=== PATIENT | male | born 1935 | race Caucasian/White ===

== ENCOUNTER → 2018-12-05 | Outpatient (REF) | payer MEDICARE, OTHER | LOC: M LAB REF 15:45 | PROVIDERS: ATTEND Physician Assistant | DX: J02.9 Acute pharyngitis, unspecified (principal) ==

== ENCOUNTER 2019-03-30 14:06 | Inpatient (IN) | payer MEDICARE, OTHER ==
[~2019-03-30] VITALS: Ht 180.3 cm; Wt 107.0 kg
[2019-03-30] MEDS ORDERED: ONDANSETRON 4MG/2ML VIAL (J2405) IV ONE (14:30)
[2019-03-30] MEDS ORDERED: MORPHINE 4 MG/ML 1ML VIAL/SYRINGE (J2270) IV ONE (14:30)
[2019-03-30] MEDS: NS 1,000 ML IV SCH ×2 (15:01→22:12)
[2019-03-30 15:43] LABS: BASO # 0.1 10^3/uL (0.0-0.2); BASO % 0.4 % (0.0-1.0); HEMOGLOBIN 12.4 g/dl (13.5-17.5); LYMPH # 0.6 10^3/uL (1.5-5.0); LYMPH % 3.5 % (24.0-44.0); MEAN CORPUSCULAR HEMOGLOBIN 38.3 pg (27.0-33.0); MEAN CORPUSCULAR HGB CONC 34.4 g/dl (32.0-36.5); MEAN CORPUSCULAR VOLUME 111.1 fl (80.0-96.0); MONO % 6.2 % (0.0-5.0); NEUTROPHILS # 13.6 10^3/uL (1.5-8.5); NEUTROPHILS % 87.8 % (36.0-66.0); PLATELET COUNT, AUTOMATED 168 10^3/uL (150-450); RED BLOOD COUNT 3.24 10^6/uL (4.30-6.10); WHITE BLOOD COUNT 15.5 10^3/uL (4.0-10.0)
[2019-03-30 15:55] LABS: INR 1.55; PROTHROMBIN TIME 18.3 SECONDS (11.8-14.0)
[2019-03-30 15:56] LABS: PARTIAL THROMBOPLASTIN TIME 42.9 SECONDS (25.0-38.4)
--- NOTE | 2019-03-30 15:57 | REP ---
Lumbar spine series: Four views. History: Trauma. Findings: Four views of the lumbar spine are presented. There are spinous process fusion clamp seen in place at the L4-5 and L3-4 interspinous level. Lumbar vertebral body heights are preserved. No fracture or collapse is seen. Discogenic spurring is noted in the mid lumbar spine. The oblique images are not well penetrated. Impression: No traumatic abnormality noted. Status post interspinous fusion at the L3-4 and L4-5. Degenerative disc disease. Electronically Signed by Moises Lowery MD 03/30/2019 06:38 P
--- NOTE | 2019-03-30 15:59 | REP ---
AP PELVIS, LEFT HIP: REASON: Trauma. AP pelvis shows moderate bilateral asymmetric hip joint space narrowing with buttressing. There is no evidence of an acute fracture. Postoperative changes seen involving the imaged lumbar spine. AP and frog lateral views of the left hip show degenerative changes as mentioned in the AP pelvis. There is no acute fracture or dislocation. OVERALL IMPRESSION: Chronic changes. Electronically Signed by Simon Chu DO 03/30/2019 04:05 P
[2019-03-30 16:12] LABS: BLOOD UREA NITROGEN 22 MG/DL (7-18); CALCIUM LEVEL 8.5 MG/DL (8.8-10.2); CARBON DIOXIDE LEVEL 30 MEQ/L (21-32); CHLORIDE LEVEL 105 MEQ/L (98-107); CK-MB VALUE MASS 1.9 NG/ML (<3.6); CPK CREATINE PHOSPHOKINASE 503 U/L (39-308); CREATININE FOR GFR 0.91 MG/DL (0.70-1.30); GLOMERULAR FILTRATION RATE > 60.0 (>35); GLUCOSE, FASTING 104 MG/DL (70-100); MB/CK RELATIVE INDEX 0.38 (< OR =4); SODIUM LEVEL 142 MEQ/L (136-145); TROPONIN I 0.13 NG/ML (< 0.10)
--- NOTE | 2019-03-30 16:21 | REP ---
REASON: Preoperative evaluation. The latest prior for comparison is 02/16/2018. The technique utilized in obtaining the radiograph has magnified the cardiac silhouette and accentuated the interstitial markings. There is cardiomegaly accentuated by technique. There is a subtle opacity in the left upper lobe difficult to evaluate on this portable exam. There appears to be a nodule in the right mid lung zone, again difficulty to evaluate on this portable exam. This nodule measures approximately 1.4 cm. There is evidence of calcific pleural plaquing and seen in the left lower lung field more than the right. The osseous structures are essentially unchanged. IMPRESSION: Lung field abnormalities as described above. CT examination of the chest is recommended. Electronically Signed by Simon Chu DO 03/30/2019 04:32 P
--- NOTE | 2019-03-30 16:59 | REP ---
CT left hip without contrast: History: Trauma. CT findings: There is a fairly prominent pattern of tendon insertion site spurring on the greater trochanter, lesser trochanter, and ischium. There is no evidence of proximal femur or left antionette pelvis fracture. Femoral head is smooth and rounded. Mild acetabular and femoral osteoarthritic spurring is noted. The periarticular soft tissues are remarkable only for some vascular calcification. Incidentally, the urinary bladder appears to be distended. Impression: No hip fracture. Mild hip joint osteoarthritis. Tendon insertion site spurring on the greater trochanter, lesser trochanter, and ischium. Distended urinary bladder noted incidentally. Electronically Signed by Moises Lowery MD 03/30/2019 06:41 P
[2019-03-30] MEDS ORDERED: ISOVUE-370 76% 100ML VIAL (Q9967) As Ordered ONE (17:02)
--- NOTE | 2019-03-30 17:17 | REP ---
CT lumbar spine: 03/30/2019. Indication: Lumbar spine trauma. Technique: Axial images of the lumbar spine were obtained with sagittal and coronal reconstruction provided. Comparison: None. Findings: There is no acute fracture, subluxation or dislocation of the lumbar spine. Postoperative sequelae are noted with the interspinous process spacing hardware appearing intact. There is minimal retrolisthesis of L3 and L4. Multilevel degenerative sequelae are present. No definite disc herniation is detected. There is no evidence of hemorrhage within the spinal canal or paraspinal soft tissues. Extensive aortoiliac atherosclerotic disease is present. Impression: No acute pathology of the osseous lumbar spine. No fracture. Electronically Signed by Naseem Bal DO 03/30/2019 05:19 P
[2019-03-30] MEDS ORDERED: XARE20TA PO (17:27)
[2019-03-30] MEDS ORDERED: BISO5TAB9 PO (17:27)
[2019-03-30] MEDS ORDERED: METH4TAB28 PO (17:27)
[2019-03-30] MEDS ORDERED: PRES10CA2 PO (17:27)
[2019-03-30] MEDS ORDERED: FOLI1TAB11 PO (17:27)
[2019-03-30] MEDS ORDERED: OMEP-218 PO (17:27)
[2019-03-30] MEDS ORDERED: ACET-907 PO (17:27)
[2019-03-30] MEDS ORDERED: AMLO5TAB6 PO (17:27)
[2019-03-30] MEDS ORDERED: METH2.5T48 PO (17:27)
[2019-03-30] MEDS ORDERED: REST0.05 OD (17:30)
--- NOTE | 2019-03-30 17:56 | REPVR ---
PROCEDURE INFORMATION: Exam: CT Abdomen And Pelvis With Contrast Exam date and time: 03/30/2019 5:17 PM Clinical history: 83 years old, male; Injury or trauma; Fall; Initial encounter; Blunt; Generalized TECHNIQUE: Imaging protocol: Computed tomography of the abdomen and pelvis with intravenous contrast. Radiation optimization: All CT scans at this facility use at least one of these dose optimization techniques: automated exposure control; mA and/or kV adjustment per patient size (includes targeted exams where dose is matched to clinical indication); or iterative reconstruction. Contrast material: ISOVUE 370; Contrast volume: 100 ml; Contrast route: IV; COMPARISON: CR Hip,AP,LAT to include Pelvis LEFT 03/30/2019 2:38 PM FINDINGS: Lungs: No suspicious mass or airspace process in the visualized lung bases. Pleural space: Calcified pleural plaques are present at the lung bases. Heart: Multi-chamber cardiac dilatation is noted. No evidence of acute pulmonary edema. Liver: Liver appears normal with no focal abnormality. Gallbladder and bile ducts: Gallbladder is present and shows no evidence of gallstone. Pancreas: Pancreas appears normal. No focal mass or peripancreatic inflammation. Spleen: Spleen appears homogeneous without focal mass. Adrenals: Adrenal glands are normal in appearance. Kidneys and ureters: Kidneys appear normal, with no stone, solid mass or hydronephrosis. Stomach and bowel: No evidence of small bowel obstruction. Diverticular changes are present within the colon without inflammation. Appendix: Appendix is not visualized. Cecal tip suture line is present suggesting prior appendix resection. Intraperitoneal space: demonstrate bilateral simple fluid density cysts measuring up to 4.2 cm. All the lesions demonstrate simple fluid density and are therefore benign cysts which require no follow up. No pneumoperitoneum. No abnormal pelvic mass. Vasculature: Atherosclerotic change present in the aorta, without aneurysm. Lymph nodes: No enlarged lymph nodes. No abnormal pelvic sidewall lymph nodes. Bladder: Urinary bladder appears normal. Reproductive: Unremarkable as visualized. Bones/joints: Postsurgical and degenerative changes are incidentally seen in the lumbar spine, unchanged No acute lumbar spine fracture. No acute pelvic fracture or malalignment. Soft tissues: Fat containing umbilical hernia is present. No intra-abdominal hematoma. No pelvic hematoma. IMPRESSION: 1. No CT evidence of acute abdominal or pelvic trauma 2. Colonic diverticular changes without active inflammation. 3. Incidental findings as described above, which require no specific followup Electronically signed by: Maycol Dennis On 03/30/2019 17:56:42 PM
[2019-03-30] MEDS ORDERED: KETOROLAC 30 MG/ML VIAL (J1885) IV ONE (19:00)
[2019-03-30 21:27] VITALS: BP 187/77
[2019-03-30] MEDS: BISOPROLOL FUMARATE 5 MG TAB PO SCH (22:11)
[2019-03-30] MEDS: RIVAROXABAN 20 MG TAB (XARELTO) PO SCH (22:11)
[2019-03-30] MEDS: amLODIPine 5 MG TAB PO SCH (22:11)
[2019-03-30] MEDS: FOLIC ACID 1 MG TAB PO SCH (22:12)
[2019-03-30] MEDS: methylPREDNISolone 4 MG TAB PO SCH (23:30)
--- NOTE | 2019-03-31 02:11 | HPEPDOC ---
General Date of Admission 03/30/19 Date of Service: Mar 30, 2019 Chief Complaint The patient is a 83-year-old male admitted with a reason for visit of Fall Injury/Hip Pain. Source: Patient, RN/, Old records History of Present Illness 83 year old male with PMH of DVT of right leg and Pulmonary embolism in December 2018 on xarelto, Rheumatoid arthritis, Hypertension, BPH, Reflux, Degenerative disc disease, Lumber radiculopathy, macular degeneration, VON untreated, obesity, Stroke affecting right eye vision, Carotid artery disease s/p right carotid endarterectomy, right arm lipoma woke up this morning at around 9:30 am and was sitting at the side of the bed trying to reposition himself trying to get up when he slid out of the bed on to the floor and then could not get up. He was found by the neighbours at around noon on the floor by the bed and he was brought to the hospital. Patient denied hitting his head, denied feeling dizzy or passing out. He denied having any bowel or bladder incontinence. He was down on the floor for about 3 to 4 hours. On my interview he complained about severe pain on both his buttocks and any movement of the legs is aggravating the pain. The pain in 10/10 in intensity and says his left side is worse than the right. The pain is dull and throbbing and on movement of the legs becomes sharp. He also has a chronic pain on the right leg which goes down his back of the leg while he walks so recently walking has been difficult at home . He would have to stop and rest. His daughter and son in law are at the bedside. They all live in the [place] area and they requested that if the pateint needs to go to rehab they would like him to go to somewhere near [place]. The patient's grand daughter is actually a NURSE SPECIAL in a rehab center and would be able to get him into the rehab [facility] where she works if needed. In the ED multiple xrays and CT scans done as trauma protocol and all were negative for any fracture or dislocation. No Psoas muscle hematoma or gluteal hematoma noted. CT of the hip joins showed No hip fracture. Mild hip joint osteoarthritis. Tendon insertion site spurring on the greater trochanter, lesser trochanter, and ischium. Distended urinary bladder noted incidentally. CT of the lumber spine showed There is no acute fracture, subluxation or dislocation of the lumbar spine. Postoperative sequelae are noted with the interspinous process spacing hardware appearing intact. There is minimal retrolisthesis of L3 and L4. Multilevel degenerative sequelae are present. No definite disc herniation is detected. Patient was admitted for pain control and physical therapy as he could not ambulate. Home Medications Scheduled Amlodipine Besylate (Amlodipine Besylate) 5 Mg Tablet, 5 MG PO DAILY, (Reported) Bisoprolol Fumarate (Bisoprolol Fumarate) 5 Mg Tablet, 5 MG PO BID, (Reported) Cyclosporine (Restasis) 0.05% Droperette, 1 DROP OD BID, (Reported) Folic Acid (Folic Acid) 1 Mg Tablet, 1 MG PO DAILY, (Reported) Methotrexate Sodium (Methotrexate) 2.5 Mg Tablet, 2.5 MG PO DAILY, (Reported) Methylprednisolone (Methylprednisolone) 4 Mg Tablet, 4 MG PO BID, (Reported) Omeprazole (Omeprazole) 20 Mg Capsule.dr, 20 MG PO DAILY, (Reported) Rivaroxaban (Xarelto) 20 Mg Tablet, 20 MG PO QPM, (Reported) Vit C/E/Zn/Coppr/Lutein/Zeaxan (Preservision Areds 2 Softgel) 1 Each Capsule, 1 EACH PO BID, (Reported) Scheduled PRN Acetaminophen (Tylenol) 325 Mg Tablet, 650 MG PO Q4H PRN for PAIN, (Reported) Allergies Coded Allergies: No Known Allergies (Unverified , 03/30/19) Past Medical History Medical History DVT of right leg and Pulmonary embolism in December 2018 on xarelto, Rheumatoid arthritis, Hypertension, BPH, Reflux, Degenerative disc disease, Lumber radiculopathy, macular degeneration, VON untreated, obesity, Stroke affecting right eye vision, Carotid artery disease s/p right carotid endarterectomy, right arm lipoma Surgical History Right carotid endarterectomy appendectomy carpal tunnel repair bilateral total knee replacement Status post interspinous fusion at the L3-4 and L4-5. Family History Significant Family History: Heart disease, Other (rheumatoid arthritis) Social History * Smoker: non-smoker Alcohol: Denies Drugs: denies A-FIB/CHADSVASC A-FIB History Current/History of A-Fib/PAF?: No Current PO Anticoag Therapy: Yes Review of Systems Constitutional: Denies: Chills, Fever, Night Sweats Eyes: Denies: Pain, Vision change ENT: Reports: Sore Throat; Denies: Head Aches, Ear Pain, Dysphagia Skin: Denies: Rash, Lesions, Breakdown Pulmonary: Denies: Dyspnea, Cough Cardiovascular: Denies: Chest Pain, Palpitations, Orthopnea, Lt Headedness Gastrointestinal: Denies: Nausea, Vomiting, Abdominal Pain, Diarrhea Genitourinary: Denies: Dysuria, Frequency, Incontinence, Retention Hematologic: Reports: Bruising Musculoskeletal: Reports: Back Pain, Leg Pain, Joint Pain, Muscle Pain, Spasms Neurological: Reports: Weakness; Denies: Numbness, Change in speech, Confusion Physical Examination General Exam: Positive: Alert, Cooperative, Mild Distress (due to pain) Eye Exam: Positive: Conjunctiva & lids normal, EOMI ENT Exam: Positive: Atraumatic, Pharynx Normal, Nares Patent Neck Exam: Positive: Supple; Negative: JVD, thyromegaly Chest Exam: Positive: Normal air movement, Diminished (at the bases), Other (basal crackles) Heart Exam: Positive: Rate Normal, Regular Rhythm, Normal S1, Normal S2; Negative: Murmurs, Rubs Telemetry: Positive: No significant arrhythmia Abdomen Exam: Positive: Normal bowel sounds, Soft, Other (obese abdomen); Negative: Tenderness, Hepatospenomegaly Extremity Exam: Positive: Tenderness (on slight movement of the legs pain from the buttocks down the legs. ), Other (brownish discoloration of both the forearams); Negative: Clubbing, Cyanosis, Edema Neuro Exam: Positive: Normal Speech, Normal Tone Psych Exam: Positive: Memory Intact, Oriented x 3 Vital Signs Vital Signs Date Time Temp Pulse Resp B/P (MAP) Pulse Ox O2 Delivery O2 Flow Rate FiO2 03/30/19 15:12 17 03/30/19 15:06 85 92 03/30/19 15:00 148/65 (92) 03/30/19 14:21 100.1 Laboratory Data Labs 24H Laboratory Tests 2 03/30/19 15:18: Immature Granulocyte % (Auto) 2.1, White Blood Count 15.5H, Red Blood Count 3.24 L, Hemoglobin 12.4L, Hematocrit 36.0L, Mean Corpuscular Volume 111.1H, Mean Corpuscular Hemoglobin 38.3H, Mean Corpuscular Hemoglobin Concent 34.4, Red Cell Distribution Width 17.1H, Platelet Count 168, Neutrophils (%) (Auto) 87.8H, Lymphocytes (%) (Auto) 3.5L, Monocytes (%) (Auto) 6.2H, Eosinophils (%) (Auto) 0.0, Basophils (%) (Auto) 0.4, Neutrophils # (Auto) 13.6H, Lymphocytes # (Auto) 0.6L, Monocytes # (Auto) 1.0H, Eosinophils # (Auto) 0.0, Basophils # (Auto) 0.1, Nucleated Red Blood Cells % (auto) 0.0, Prothrombin Time 18.3H, Prothromb Time International Ratio 1.55, Activated Partial Thromboplast Time 42.9H, Anion Gap 7L, Glomerular Filtration Rate > 60.0, Blood Urea Nitrogen 22H, Creatinine 0.91, Sodium Level 142, Potassium Level 4.0, Chloride Level 105, Carbon Dioxide Level 30, Calcium Level 8.5L, Total Creatine Kinase 503H, Creatine Kinase MB 1.9, Creatine Kinase MB Relative Index 0.38, Troponin I 0.13H CBC/BMP Laboratory Tests 03/30/19 15:18 Red Blood Count 3.24 L, Mean Corpuscular Volume 111.1 H, Mean Corpuscular Hemoglobin 38.3 H, Mean Corpuscular Hemoglobin Concent 34.4, Red Cell Distribution Width 17.1 H, Neutrophils (%) (Auto) 87.8 H, Lymphocytes (%) (Auto) 3.5 L, Monocytes (%) (Auto) 6.2 H, Eosinophils (%) (Auto) 0.0, Basophils (%) (Auto) 0.4, Neutrophils # (Auto) 13.6 H, Lymphocytes # (Auto) 0.6 L, Monocytes # (Auto) 1.0 H, Eosinophils # (Auto) 0.0, Basophils # (Auto) 0.1, Calcium Level 8.5 L, Total Creatine Kinase 503 H Assessment/Plan 83 year old male with PMH of DVT of right leg and Pulmonary embolism in December 2018 on xarelto, Rheumatoid arthritis, Hypertension, BPH, Reflux, Degenerative disc disease, Lumber radiculopathy, macular degeneration, VON untreated, obesity, Stroke affecting right eye vision, Carotid artery disease s/p right carotid endarterectomy, right arm lipoma woke up this morning at around 9:30 am and was sitting at the side of the bed trying to reposition himself trying to get up when he slid out of the bed on to the floor and then could not get up. He was found by the neighbours at around noon on the floor by the bed and he was brought to the hospital. In the ED multiple xrays and CT scans done as trauma protocol and all were negative for any fracture or dislocation. No Psoas muscle hematoma or gluteal hematoma noted. Patient was admitted for pain control and physical therapy as he could not ambulate. S/P mechanical fall on the buttocks. no fracture or dislocation, no psoas or gluteal hematoma noted patient in excruciating pain. received morphine in the ED and was somnolent Patient has history of untreated VON so would avoid narcotics. will try to control pain with ketorolac and ultracet and tylenol. PT/OT consider ortho consultation tomorrow if deemed necessary if pain still remains unbearable. H/o DVT and PE in the december 2018 was told due to reduced mobility as he was sick for a while and was mostly staying in bed. continue xarelto Rheumatoid arthritis continue methotrexate and methyl pred. rik was taking 1 methotrexate daily instead of 7 tabs together once every week. Hypertension continue amlodipine and bisoprolol BPH continue with flomax bladder scan prn and straight cath if greater than 300 cc. Reflux continue omeprazole. Abnormal CXR with ? opacity in left upper lobe and pulmonary nodule in right mid lung zone This nodule measures approximately 1.4 cm. There is evidence of calcific pleural plaquing and seen in the left lower lung field more than the right. Consider CT chest tomorrow. Code: DNR and DNI Plan / VTE VTE Prophylaxis Ordered?: Yes TIMMY DAVIS MD Mar 30, 2019 16:54
[2019-03-31 06:00] VITALS: BP 98/80
[2019-03-31 06:22] LABS: BASO % 0.2 % (0.0-1.0); HEMATOCRIT 32.6 % (42.0-52.0); HEMOGLOBIN 11.2 g/dl (13.5-17.5); LYMPH # 0.4 10^3/uL (1.5-5.0); LYMPH % 2.9 % (24.0-44.0); MEAN CORPUSCULAR HEMOGLOBIN 38.4 pg (27.0-33.0); MEAN CORPUSCULAR HGB CONC 34.4 g/dl (32.0-36.5); MEAN CORPUSCULAR VOLUME 111.6 fl (80.0-96.0); MONO % 6.8 % (0.0-5.0); NEUTROPHILS # 12.2 10^3/uL (1.5-8.5); NEUTROPHILS % 88.3 % (36.0-66.0); PLATELET COUNT, AUTOMATED 135 10^3/uL (150-450); RED BLOOD COUNT 2.92 10^6/uL (4.30-6.10); WHITE BLOOD COUNT 13.9 10^3/uL (4.0-10.0)
[2019-03-31 06:42] LABS: BLOOD UREA NITROGEN 22 MG/DL (7-18); CALCIUM LEVEL 8.6 MG/DL (8.8-10.2); CARBON DIOXIDE LEVEL 29 MEQ/L (21-32); CHLORIDE LEVEL 106 MEQ/L (98-107); CREATININE FOR GFR 0.98 MG/DL (0.70-1.30); GLOMERULAR FILTRATION RATE > 60.0 (>35); GLUCOSE, FASTING 114 MG/DL (70-100); SODIUM LEVEL 141 MEQ/L (136-145)
--- NOTE | 2019-03-31 07:41 | ECGEPIP ---
[facility] - ED Test Date: 2019-03-30 Pat Name: MELECIO PHAN Department: Room: - Gender: Male [employer] Employee: rainer : [id number] Requested By: Eugene To Order Number: [id number] Reading MD: Eugene Samuel Measurements Intervals [place] Rate: 85 P: 16 FL: 167 QRS: -30 QRSD: 92 T: 50 QT: 298 QTc: 355 Interpretive Statements SINUS RHYTHM MODERATE VOLTAGE CRITERIA FOR LVH, CONSIDER NORMAL VARIANT INFERIOR MYOCARDIAL INFARCTION, PROBABLY OLD BASELINE ARTIFACT AFFECTS INTERPRETATION NO PRIORS FOR COMPARISON Electronically Signed on 03-31-2019 7:41:04 EDT by Eugene Samuel
[2019-03-31] MEDS: FOLIC ACID 1 MG TAB PO SCH (08:58)
[2019-03-31] MEDS: BISOPROLOL FUMARATE 5 MG TAB PO SCH ×2 (08:58→20:19)
[2019-03-31] MEDS: ULTRACET TAB PO PRN ×2 (08:59→17:10)
[2019-03-31] MEDS: OMEPRAZOLE 20 MG CAP PO SCH (09:00)
[2019-03-31] MEDS: methylPREDNISolone 4 MG TAB PO SCH ×2 (09:00→20:16)
[2019-03-31] MEDS: amLODIPine 5 MG TAB PO SCH (09:00)
[2019-03-31 09:30] VITALS: BP 123/78
--- NOTE | 2019-03-31 11:47 | REP ---
CT chest without contrast: History: Abnormal chest x-ray. Comparison portable chest x-ray March 30, 2019. CT findings: There is extensive calcific pleural plaquing noted bilaterally consistent with previous asbestos exposure. There are some coarse areas of linear fibrosis in the left upper lobe and adjacent to several of the larger plaques in the lower lobes bilaterally. There is no evidence of diffuse interstitial lung disease. No pulmonary mass lesion is seen. No pleural effusion is noted. Vascular calcification is noted. No hilar or mediastinal mass or adenopathy is seen. Heart is not felt to be enlarged. No adrenal lesion is seen. There is residual contrast in the intrarenal collecting systems in the upper poles of each kidney. Parapelvic cysts are seen. Impression: Extensive bilateral calcific pleural plaquing consistent with previous asbestos exposure. There are adjacent areas of linear fibrosis. Otherwise no acute disease. Electronically Signed by Moises Lowery MD 03/31/2019 06:45 P
[2019-03-31] MEDS ORDERED: CEPACOL LOZENGE PO PRN (13:30)
[2019-03-31] MEDS: KETOROLAC 30 MG/ML VIAL (J1885) IV PRN ×2 (13:41→20:16)
[2019-03-31 15:11] VITALS: BP 107/61
--- NOTE | 2019-03-31 15:28 | CR.PDOC ---
[facility] Pain Clinic Consultation General Date of Consultation: 03/31/19 Chief Complaint The patient is a 83-year-old male admitted with a reason for visit of Fall,Inability To Ambulate Due To Hip. History of Present Illness 83-year-old male who was recently admitted for increased right hip pain status post fall. Patient has been receiving Toradol and Ultracet as needed for pain. He does admit the Ultracet has been helpful in relieving his pain. Home Medications Scheduled Cyclosporine (Restasis) 0.05% Droperette, 1 DROP OD BID, (Reported) Folic Acid (Folic Acid) 1 Mg Tablet, 1 MG PO DAILY, (Reported) Methotrexate Sodium (Methotrexate) 2.5 Mg Tablet, 2.5 MG PO DAILY, (Reported) Methylprednisolone (Methylprednisolone) 4 Mg Tablet, 4 MG PO BID, (Reported) Omeprazole (Omeprazole) 20 Mg Capsule.dr, 20 MG PO DAILY, (Reported) Rivaroxaban (Xarelto) 20 Mg Tablet, 20 MG PO QPM, (Reported) Vit C/E/Zn/Coppr/Lutein/Zeaxan (Preservision Areds 2 Softgel) 1 Each Capsule, 1 EACH PO BID, (Reported) Scheduled PRN Acetaminophen (Tylenol) 325 Mg Tablet, 650 MG PO Q4H PRN for PAIN, (Reported) Allergies Coded Allergies: No Known Allergies (Unverified , 03/30/19) Social History Social History Denies tobacco, alcohol, or illicit substance abuse. Review of Systems Subjective Constitutional: Denies: chills, fever HEENT: Denies: head aches, vision problems Pulmonary: Denies: shortness of breath Cardiovascular: Denies: chest pain Gastrointestinal: Denies: abdominal pain, constipation, diarrhea, nausea, vomiting Musculoskeletal: Reports: joint pain (Right hip pain ) Physical Examination Physical Examination Vital Signs/I&O Vital Signs Date Time Temp Pulse Resp B/P (MAP) Pulse Ox O2 Delivery O2 Flow Rate FiO2 03/31/19 09:30 66 123/78 (93) 03/31/19 09:30 18 03/31/19 08:59 99 03/31/19 06:00 99.6 03/31/19 04:46 2.0 I&O- Last 24 Hours up to 6 AM 03/31/19 06:00 Intake Total 600 ml Output Total 700 ml Balance -100 ml General Exam: Positive: alert, attentive, cooperative Chest Exam: Positive: Clear to auscultation Heart Exam: Positive: Regular rate and rhythm Laboratory Data Labs 24H Laboratory Tests 2 03/31/19 05:53: Immature Granulocyte % (Auto) 1.8, White Blood Count 13.9H, Red Blood Count 2.92L, Hemoglobin 11.2L, Hematocrit 32.6L, Mean Corpuscular Volume 111.6H, Mean Corpuscular Hemoglobin 38.4H, Mean Corpuscular Hemoglobin Concent 34.4, Red Cell Distribution Width 17.3H, Platelet Count 135L, Neutrophils (%) (Auto) 88.3H, Lymphocytes (%) (Auto) 2.9L, Monocytes (%) (Auto) 6.8H, Eosinophils (%) (Auto) 0.0, Basophils (%) (Auto) 0.2, Neutrophils # (Auto) 12.2H, Lymphocytes # (Auto) 0.4L, Monocytes # (Auto) 1.0H, Eosinophils # (Auto) 0.0, Basophils # (Auto) 0.0, Nucleated Red Blood Cells % (auto) 0.0, Anion Gap 6L, Glomerular Filtration Rate > 60.0, Blood Urea Nitrogen 22H, Creatinine 0.98, Sodium Level 141, Potassium Level 4.0, Chloride Level 106, Carbon Dioxide Level 29, Calcium Level 8.6L CBC/BMP Laboratory Tests 03/31/19 05:53 Red Blood Count 2.92 L, Mean Corpuscular Volume 111.6 H, Mean Corpuscular Hemoglobin 38.4 H, Mean Corpuscular Hemoglobin Concent 34.4, Red Cell Distribution Width 17.3 H, Neutrophils (%) (Auto) 88.3 H, Lymphocytes (%) (Auto) 2.9 L, Monocytes (%) (Auto) 6.8 H, Eosinophils (%) (Auto) 0.0, Basophils (%) (Auto) 0.2, Neutrophils # (Auto) 12.2 H, Lymphocytes # (Auto) 0.4 L, Monocytes # (Auto) 1.0 H, Eosinophils # (Auto) 0.0, Basophils # (Auto) 0.0, Calcium Level 8.6 L Microbiology Microbiology 03/31/19 Eye/Ear/Nose/Throat Culture, Received Pending 03/31/19 Group A Streptococcus Screen (ALISIA) - Final, Resulted 03/31/19 Group A Streptococcus Screen (ALISIA), Resulted Pending Assessment 83-year old male with increased right hip pain status post fall. Given presenting symptoms and results of physical examination recommended Ultracet one or 2 tabs every 8 hours as needed for pain. Would further recommend medication be given 20-30 minutes before physical therapy. Patient and family have expressed understanding of and were in agreement with treatment plan. Given time to ask questions and express concerns. Recommendation and Plan Thank you for allowing us to participate in the care of your patient. Should you have any questions we will be glad to discuss this with you at any time please contact us here at the pain center at [phone]. JAVAN AGUILAR. IZZY Mar 31, 2019 15:27
--- NOTE | 2019-03-31 15:52 | IPN ---
DATE: 03/31/2019 SUBJECTIVE: The patient complains of sore that he has had for the past 3 days at home. No fever or chills. No ear pain or nasal congestion. No headache. The patient denies any odynophagia, dysphagia due to this. No other sick contacts recently. He also complains of pain in the lower back that radiates from his lower back down to his feet, worse when he tries to get up and walk around, better when he leans forward. This has been going on for several years. The patient had a fall at home and since then has had significant pain and difficulty ambulating. He denies any dysuria, urgency or frequency, but complains of bilateral back pain, left greater than right with difficulty ambulating. Complains of weakness in the lower extremities, unable to pick himself up. The patient lives alone with most of the family in [place]. Healthcare proxy is Brook Leblanc, phone number is [phone], and is requesting rehabilitation in [place]. The patient denies any dysuria, urgency, frequency, fever or chills. He does have left sided back pain. Temperature 99.6, pulse 66, respiratory rate 18, blood pressure 123/70, 99% on 2 liters nasal cannula. GENERAL: Awake, alert, oriented times three. Answering questions appropriately. The patient has no respiratory distress. No jugular venous distention (JVD). No use of respiratory accessory muscles. LUNGS: Diminished but clear to auscultation. No wheezing, rales or rhonchi. HEART: S1, S2. Sinus rhythm. ABDOMEN: Soft, nontender. Obese abdomen. No rebound or guarding. Positive bowel sounds times four quadrants. EXTREMITIES: No cyanosis. No clubbing. The patient does have positive straight leg test on the left. He has no pitting edema. No costovertebral angle tenderness. LABORATORY DATA: White count 13.9, hemoglobin 11, hematocrit 32, platelet count 135. Sodium 141, potassium 4, chloride 106, bicarbonate 29, BUN 22, creatinine 0.98, glucose of 114, calcium 8.6, total CK 503. 03/31/2019 strep screen is negative. ASSESSMENT AND PLAN: This is an 83-year-old who lives alone and has history of deep vein thrombosis (DVT) in right leg and pulmonary embolus in December 2018, on chronic Xarelto, rheumatoid arthritis, hypertension, benign prostatic hypertrophy (BPH), lumbar radiculopathy, macular degeneration, untreated obstructive sleep apnea with obesity, CVA affecting right eye vision, carotid disease status post right carotid endarterectomy, right arm lipoma, who had a fall at home and was unable to ambulate. The patient lives in [place] and has been spending his [place] in the [facility] area. CT of the hip has no fracture. There is spurring on the greater trochanter and ischium. CT of the lumbar spine has no acute fracture or dislocation. He does have interspinous process spacing hardware that appears to be intact. CURRENT ISSUES: 1. Fall with intractable back pain and worsening of his chronic lumbar radiculopathy. Pain management has been consulted. Due to history of untreated sleep apnea, the patient is at increased risk for respiratory acidosis and hypercarbic respiratory failure. The patient is currently on Toradol, Ultracet and Tylenol. Physical therapy (PT) and occupational therapy (OT) have been consulted and acute rehabilitation unit. 2. Sore throat. Strep screen is negative. Cepacol lozenges as needed. Throat culture has been sent. The patient is afebrile with slight white count, which is most likely reactive. Await throat culture prior to starting on antibiotics. 3. Chronic anemia. No acute indication for red blood cell transfusion. 4. Thrombocytopenia. No active signs of bleeding. 5. Chronic rheumatoid arthritis. On methotrexate. On chronic steroids. 6. History of deep vein thrombosis (DVT) and pulmonary embolus. On chronic Xarelto. 7. Hypertension. On Norvasc and Zebeta. 8. Benign prostatic hypertrophy (BPH). On Flomax. Bladder scan as needed and straight catheterization if greater than 300 mL. 9. Asbestos related lung disease. The patient follows with director of corporate sales in [place]. The patient is DO NOT RESUSCITATE, DO NOT INTUBATE code status. He is hoping to return back to [place] for rehabilitation. SHEMAR
[2019-03-31] MEDS: RIVAROXABAN 20 MG TAB (XARELTO) PO SCH (17:08)
--- NOTE | 2019-03-31 20:28 | REPVR ---
PROCEDURE INFORMATION: Exam: MR Lumbar Spine Without Contrast. Exam date and time: 03/31/2019 7:39 PM Clinical history: 83 years old, male; Pain; Other: Fall left radiculopathy TECHNIQUE: Imaging protocol: Multiplanar magnetic resonance images of the lumbar spine without intravenous contrast. COMPARISON: CT Spine, lumbar w/o contrast 03/30/2019 3:19 PM FINDINGS: Vertebral body heights are maintained. Interspinous hardware at L3-L4 and L4-L5. Heterogeneous fatty marrow attenuation. No evidence of acute fracture. No cord compression. No abnormal cord signal. Conus medullaris terminates at the T12 level. Paravertebral soft tissues are unremarkable. L1-L2: No significant canal or foraminal narrowing. L2-L3: Broad-based disc bulge facet hypertrophy causes mild canal narrowing and moderate bilateral foraminal narrowing. L3-L4: Broad-based disc bulge facet hypertrophy causes mild canal narrowing and moderate bilateral foraminal narrowing. L4-L5: Broad-based disc bulge facet hypertrophy causes moderate canal narrowing and effacement of the bilateral lateral recesses. Moderate to severe bilateral foraminal narrowing. L5-S1: Broad-based disc bulge and facet hypertrophy causes mild canal narrowing and moderate bilateral foraminal narrowing. IMPRESSION: 1. No acute findings in the lumbar spine. 2. Multilevel spondylotic changes of the lumbar spine, as above. Electronically signed by: Tima Shaver On 03/31/2019 20:28:17 PM
[2019-03-31 22:00] VITALS: BP 102/57
[2019-04-01] MEDS: NS 1,000 ML IV SCH ×2 (02:00→22:30)
[2019-04-01 06:37] LABS: BASO % 0.2 % (0.0-1.0); EOS # 0.1 10^3/uL (0.0-0.5); EOS % 0.4 % (0.0-3.0); HEMATOCRIT 30.7 % (42.0-52.0); HEMOGLOBIN 10.3 g/dl (13.5-17.5); LYMPH # 0.4 10^3/uL (1.5-5.0); LYMPH % 2.9 % (24.0-44.0); MEAN CORPUSCULAR HEMOGLOBIN 37.2 pg (27.0-33.0); MEAN CORPUSCULAR HGB CONC 33.6 g/dl (32.0-36.5); MEAN CORPUSCULAR VOLUME 110.8 fl (80.0-96.0); MONO # 0.7 10^3/uL (0.0-0.8); MONO % 5.9 % (0.0-5.0); NEUTROPHILS # 10.8 10^3/uL (1.5-8.5); NEUTROPHILS % 88.8 % (36.0-66.0); PLATELET COUNT, AUTOMATED 125 10^3/uL (150-450); RED BLOOD COUNT 2.77 10^6/uL (4.30-6.10); WHITE BLOOD COUNT 12.1 10^3/uL (4.0-10.0)
[2019-04-01] MEDS: KETOROLAC 30 MG/ML VIAL (J1885) IV PRN ×2 (06:47→20:41)
[2019-04-01 07:01] LABS: BLOOD UREA NITROGEN 34 MG/DL (7-18); CALCIUM LEVEL 8.3 MG/DL (8.8-10.2); CARBON DIOXIDE LEVEL 27 MEQ/L (21-32); CHLORIDE LEVEL 107 MEQ/L (98-107); CREATININE FOR GFR 1.17 MG/DL (0.70-1.30); GLOMERULAR FILTRATION RATE > 60.0 (>35); GLUCOSE, FASTING 152 MG/DL (70-100); POTASSIUM SERUM 3.7 MEQ/L (3.5-5.1); SODIUM LEVEL 139 MEQ/L (136-145)
[2019-04-01 08:33] VITALS: BP 82/44
[2019-04-01] MEDS: BISOPROLOL FUMARATE 5 MG TAB PO SCH ×2 (08:33→22:30)
[2019-04-01] MEDS: methylPREDNISolone 4 MG TAB PO SCH ×2 (08:33→20:41)
[2019-04-01] MEDS: OMEPRAZOLE 20 MG CAP PO SCH (08:33)
[2019-04-01] MEDS: FOLIC ACID 1 MG TAB PO SCH (08:33)
[2019-04-01] MEDS: amLODIPine 5 MG TAB PO SCH (08:34)
[2019-04-01] MEDS ORDERED: NS 500 ML IV ONE (11:30)
[2019-04-01] MEDS: ULTRACET TAB PO PRN (14:15)
[2019-04-01 14:19] VITALS: BP 110/50
[2019-04-01] MEDS: RIVAROXABAN 20 MG TAB (XARELTO) PO SCH (17:22)
[2019-04-01 20:45] VITALS: BP 104/59
[2019-04-01 21:26] VITALS: BP 116/64
[2019-04-02] MEDS: ULTRACET TAB PO PRN (03:26)
[2019-04-02 06:00] VITALS: BP 125/69
[2019-04-02 06:11] VITALS: BP 125/69
[2019-04-02 06:57] LABS: BASO % 0.2 % (0.0-1.0); EOS % 0.2 % (0.0-3.0); HEMATOCRIT 28.1 % (42.0-52.0); HEMOGLOBIN 9.6 g/dl (13.5-17.5); LYMPH # 0.4 10^3/uL (1.5-5.0); LYMPH % 4.1 % (24.0-44.0); MEAN CORPUSCULAR HEMOGLOBIN 37.8 pg (27.0-33.0); MEAN CORPUSCULAR HGB CONC 34.2 g/dl (32.0-36.5); MEAN CORPUSCULAR VOLUME 110.6 fl (80.0-96.0); MONO % 10.5 % (0.0-5.0); NEUTROPHILS # 7.9 10^3/uL (1.5-8.5); NEUTROPHILS % 82.7 % (36.0-66.0); PLATELET COUNT, AUTOMATED 130 10^3/uL (150-450); RED BLOOD COUNT 2.54 10^6/uL (4.30-6.10); WHITE BLOOD COUNT 9.6 10^3/uL (4.0-10.0)
[2019-04-02 07:21] LABS: BLOOD UREA NITROGEN 26 MG/DL (7-18); CALCIUM LEVEL 8.3 MG/DL (8.8-10.2); CARBON DIOXIDE LEVEL 24 MEQ/L (21-32); CHLORIDE LEVEL 109 MEQ/L (98-107); CREATININE FOR GFR 0.79 MG/DL (0.70-1.30); GLOMERULAR FILTRATION RATE > 60.0 (>35); GLUCOSE, FASTING 107 MG/DL (70-100); POTASSIUM SERUM 3.9 MEQ/L (3.5-5.1); SODIUM LEVEL 139 MEQ/L (136-145)
[2019-04-02] MEDS: KETOROLAC 30 MG/ML VIAL (J1885) IV PRN (07:29)
[2019-04-02] MEDS: methylPREDNISolone 4 MG TAB PO SCH (08:20)
[2019-04-02] MEDS: OMEPRAZOLE 20 MG CAP PO SCH (08:20)
[2019-04-02] MEDS: FOLIC ACID 1 MG TAB PO SCH (08:20)
[2019-04-02 08:24] VITALS: BP 100/48
[2019-04-02] MEDS: amLODIPine 5 MG TAB PO SCH (08:24)
[2019-04-02] MEDS: BISOPROLOL FUMARATE 5 MG TAB PO SCH (08:24)
[2019-04-02 08:25] VITALS: BP 100/48
--- NOTE | 2019-04-02 19:52 | DSES ---
DATE OF ADMISSION: 03/30/2019 DATE OF DISCHARGE: 04/02/2019 PRIMARY DISCHARGE DIAGNOSES: 1. Fall. 2. Fever of unknown origin. 3. Intractable back pain and chronic lumbar radiculopathy. 4. Sore throat with negative strep screen. 5. Anemia of chronic disease, no acute indication for blood transfusion. 6. Chronic thrombocytopenia. 7. Chronic rheumatoid arthritis. 8. History of deep vein thrombosis (DVT), pulmonary embolus. On chronic Xarelto. 9. Hypertension. 10. Benign prostatic hypertrophy (BPH). 11. Asbestos related lung disease. DISCHARGE MEDICATIONS: - acetaminophen 650 mg every 4 hours as needed for pain - cyclosporin one drop OD twice a day - folic acid 1 mg daily - methotrexate 2.5 mg daily - methylprednisolone 4 mg twice a day - Prilosec 20 mg daily - Xarelto 20 mg at night - PreserVision one tablet by mouth twice a day Due to low blood pressure, the patient's Norvasc 5 mg, bisoprolol 5 mg twice a day were discontinued. The patient's blood pressure on discharge was 100/48. CONSULTANTS DURING THIS ADMISSION: Pain management consultation, [employer]. HOSPITAL COURSE: This is an 83-year-old male who lives alone who presented to the emergency room after having a fall with significant pain down the lower extremity from the back all the way to the foot, described as sharp pain that radiates. Unable to ambulate. The patient lives in [place] with his granddaughter and was summering in the [facility]. CT of the hip showed no fracture. There is spurring on the greater trochanter and ischium. CT of the lumbar spine showed no acute fracture or dislocation. The patient has interspinous process spacing hardware that appears to be intact. MRI of the lumbar spine shows no acute fracture or dislocation. No acute findings. Multilevel spondylotic changes of the lumbar spine. The patient did have a temperature of 101.1 on 03/30/2019 on admission. White count was elevated at 15. Chest x-ray was negative for acute infiltrate. Blood culture was negative after 24 hours. He complained of sore throat. Rapid strep was negative. Throat culture was normal mauro. The patient has resolution of his fever without intervention. Respiratory panel was also negative. Urinalysis was negative. Leukocyte esterase showed 2 WBCs, negative bacteria. No empiric antibiotics were given. The patient remained afebrile throughout the entire stay. The patient worked with physical therapy (PT). He was felt to be stable. He did receive 4 liters of IV fluids for hydration with subsequent drop with hemodilutional anemia with a hemoglobin of 11 to 12 on admission, discharge of 9.6 to 10. The patient otherwise denies any bright red blood per rectum, melena or black tarry stool. He was discharged in stable condition for rehabilitation in [place]. LABORATORIES ON DISCHARGE: White count 9.6, hemoglobin 9.6, hematocrit 28, platelet count 130. Sodium 139, potassium 3.9, chloride 109, bicarbonate 24, BUN 26, creatinine 0.79, glucose of 107. Urinalysis showed 1+ protein, negative nitrite, 2 WBCs, negative leukocyte esterase, 2 RBCs. INR 1.55. Metabolic panel: Sodium 139, potassium 3.9, chloride 109, bicarbonate 24, BUN 26, creatinine 0.79, glucose of 107. Procalcitonin 1.18. Microbiology: Respiratory panel negative. Blood culture, two sets, negative. UA was negative. No urine culture was sent. Throat culture was negative. Strep screen was negative. Chest CT done on 03/31/2019 shows extensive bilateral calcific pleural plaquing consistent with previous asbestos exposure, linear fibrosis, no acute disease. CT of the abdomen and pelvis on 03/30/[address] evidence of acute abdominal or pelvic trauma. Colonic diverticular changes without active inflammation. Lumbar spine CT showed no acute pathology of the lumbar spine. No fracture. MRI of the lumbar spine showed no acute findings in the lumbar spine. Multilevel spondylotic changes of the lumbar spine. Time spent on discharge: 30 minutes. SHEMAR
[2019-04-05] MEDS ORDERED: METHOTREXATE 2.5 MG TAB (J8610 PER 2.5MG) PO SCH (09:00)
== END 2019-04-02 10:53 | DRG 552 ==
LOC: M ED 14:06 → M ED INP 18:31 → M MS5PR 21:20
PROVIDERS: ADMIT Internal Medicine Nephrology; ATTEND General Practice
DX: M51.16 Intervertebral disc disorders with radiculopathy, lumbar region (principal); M06.9 Rheumatoid arthritis, unspecified; I10 Essential (primary) hypertension; N40.0 Benign prostatic hyperplasia without lower urinary tract symptoms; K21.9 Gastro-esophageal reflux disease without esophagitis; H35.30 Unspecified macular degeneration; G47.33 Obstructive sleep apnea (adult) (pediatric); J61 Pneumoconiosis due to asbestos and other mineral fibers; R29.6 Repeated falls; E66.9 Obesity, unspecified; Z79.01 Long term (current) use of anticoagulants; Z79.899 Other long term (current) drug therapy; I69.398 Other sequelae of cerebral infarction; H53.9 Unspecified visual disturbance; Z86.718 Personal history of other venous thrombosis and embolism; Z86.711 Personal history of pulmonary embolism; Z96.653 Presence of artificial knee joint, bilateral; Z98.1 Arthrodesis status; Z68.30 Body mass index [BMI] 30.0-30.9, adult